=== PATIENT | female | born 1990 | race African-American/Black ===

== ENCOUNTER 2018-04-07 15:20 | Emergency (ER) | payer SELFPAY ==
--- NOTE | 2018-04-07 15:49 | EDM.PDOC ---
ED HPI GENERAL MEDICAL PROBLEM - General Chief Complaint: Abdominal Pain Stated Complaint: RIGHT SIDE ABDOMINAL PAIN Time Seen by Provider: 04/07/18 15:33 - History of Present Illness INITIAL COMMENTS - FREE TEXT/NARRATIVE: HISTORY AND PHYSICAL: History of present illness: Patient's 28-year-old black female with history of recent home positive test who developed some vaginal bleeding in the last 24 hours she also has some vague right-sided abdominal pain there's been no urinary symptoms vaginal discharge or other complaints. Review of systems: As per history of present illness and below otherwise all systems reviewed and negative. Past medical history: As per history of present illness and as reviewed below otherwise noncontributory. Surgical history: As per history of present illness and as reviewed below otherwise noncontributory. Social history: No reported history of drug or alcohol abuse. Family history: As per history of present illness and as reviewed below otherwise noncontributory. Physical exam: HEENT: Atraumatic, normocephalic, pupils reactive, negative for conjunctival pallor or scleral icterus, mucous membranes moist, throat clear, neck supple, nontender, trachea midline. Lungs: Clear to auscultation, breath sounds equal bilaterally, chest nontender. Heart: S1S2, regular, negative for clicks, rubs, or JVD. Abdomen: Soft, nondistended, nontender. Negative for masses or hepatosplenomegaly. Negative for costovertebral tenderness. Pelvis: Stable nontender. Genitourinary: Deferred. Rectal: Deferred. Extremities: Atraumatic, negative for cords or calf pain. Neurovascular unremarkable. Neuro: Awake, alert, oriented. Cranial nerves II through XII unremarkable. Cerebellum unremarkable. Motor and sensory unremarkable throughout. Exam nonfocal. Diagnostics: CBC CMP quantitative beta UA ABO Rh pelvic ultrasound Therapeutics: None Impression: #1 first trimester bleeding Definitive disposition and diagnosis as appropriate pending reevaluation and review of above. Abdominal Pain Score (Numeric/FACES): 2 - Related Data Allergies Allergy/AdvReac Type Severity Reaction Status Date / Time No Known Allergies Allergy Verified 04/07/18 15:33 Home Meds: Home Meds . [No Known Home Meds] 04/07/18 [History] Past Medical History - Past Health History Medical/Surgical History: Denies Medical/Surgical History Social & Family History - Family History Family Medical History: Noncontributory - Tobacco Use Smoking Status *Q: Never Smoker - Caffeine Use Caffeine Use: Reports: Coffee - Recreational Drug Use Recreational Drug Use: No ED ROS GENERAL - Review of Systems Review Of Systems: ROS reveals no pertinent complaints other than HPI. ED EXAM, GENERAL - Physical Exam Exam: See Below (See dictation) Course - Vital Signs Last Recorded V/S: Last Vital Signs Temp 36.7 C 04/07/18 18:10 Pulse 64 04/07/18 18:10 Resp 16 04/07/18 18:10 BP 99/57 L 04/07/18 18:10 Pulse Ox 98 04/07/18 18:10 - Orders/Labs/Meds Orders: Active Orders 24 hr Category Date Time Status OB 1st Tri Sgl 1st Gest [US] Stat Exams 04/07/18 15:47 Taken UA W/MICROSCOPIC [URIN] Stat Lab 04/07/18 16:10 Ordered Labs: Laboratory Tests 04/07/18 04/07/18 04/07/18 Range/Units 16:00 16:00 16:00 WBC 11.59 H (4.0-11.0) K/uL RBC 4.12 L (4.30-5.90) M/uL Hgb 13.3 (12.0-16.0) g/dL Hct 38.8 (36.0-46.0) % MCV 94.2 (80.0-98.0) fL MCH 32.3 H (27.0-32.0) pg MCHC 34.3 (31.0-37.0) g/dL RDW Std Deviation 40.4 (28.0-62.0) fl RDW Coeff of Ever 12 (11.0-15.0) % Plt Count 234 (150-400) K/uL MPV 9.30 (7.40-12.00) fL Neut % (Auto) 69.9 (48.0-80.0) % Lymph % (Auto) 25.0 (16.0-40.0) % [place] % (Auto) 4.7 (0.0-15.0) % Eos % (Auto) 0.3 (0.0-7.0) % Baso % (Auto) 0.1 (0.0-1.5) % Neut # (Auto) 8.1 H (1.4-5.7) K/uL Lymph # (Auto) 2.9 H (0.6-2.4) K/uL [place] # (Auto) 0.5 (0.0-0.8) K/uL Eos # (Auto) 0.0 (0.0-0.7) K/uL Baso # (Auto) 0.0 (0.0-0.1) K/uL Nucleated RBC % 0.0 /100WBC Nucleated RBCs # 0 K/uL Sodium 136 (136-145) mmol/L Potassium 3.6 (3.5-5.1) mmol/L Chloride 102 (98-107) mmol/L Carbon Dioxide 26.7 (21.0-32.0) mmol/L BUN 15 (7.0-18.0) mg/dL Creatinine 0.8 (0.6-1.0) mg/dL Est Cr Clr Drug Dosing 84.28 mL/min Estimated GFR (MDRD) > 60.0 ml/min Glucose 100 (74-106) mg/dL Calcium 8.8 (8.5-10.1) mg/dL Total Bilirubin 0.3 (0.2-1.0) mg/dL AST 15 (15-37) IU/L ALT 18 (14-63) IU/L Alkaline Phosphatase 45 L (46-116) U/L Total Protein 7.7 (6.4-8.2) g/dL Albumin 3.8 (3.4-5.0) g/dL Globulin 3.9 H (2.0-3.5) g/dL Albumin/Globulin Ratio 1.0 L (1.3-2.8) HCG, Quant 53813.0 mIU/mL Urine Color Urine Appearance Urine pH (5.0-8.0) Ur Specific [place] (1.001-1.035) Urine Protein (NEGATIVE) mg/dL Urine Glucose (UA) (NEGATIVE) mg/dL Urine Ketones (NEGATIVE) mg/dL Urine Occult Blood (NEGATIVE) Urine Nitrite (NEGATIVE) Urine Bilirubin (NEGATIVE) Urine Urobilinogen (<2.0) EU/dL Ur Leukocyte Esterase (NEGATIVE) Urine RBC (0-2/HPF) Urine WBC (0-5/HPF) Ur Epithelial Cells (NONE-FEW) Urine Bacteria (NEGATIVE) Blood Type B NEGATIVE 06/04/18 Range/Units 16:10 WBC (4.0-11.0) K/uL RBC (4.30-5.90) M/uL Hgb (12.0-16.0) g/dL Hct (36.0-46.0) % MCV (80.0-98.0) fL MCH (27.0-32.0) pg MCHC (31.0-37.0) g/dL RDW Std Deviation (28.0-62.0) fl RDW Coeff of Ever (11.0-15.0) % Plt Count (150-400) K/uL MPV (7.40-12.00) fL Neut % (Auto) (48.0-80.0) % Lymph % (Auto) (16.0-40.0) % [place] % (Auto) (0.0-15.0) % Eos % (Auto) (0.0-7.0) % Baso % (Auto) (0.0-1.5) % Neut # (Auto) (1.4-5.7) K/uL Lymph # (Auto) (0.6-2.4) K/uL [place] # (Auto) (0.0-0.8) K/uL Eos # (Auto) (0.0-0.7) K/uL Baso # (Auto) (0.0-0.1) K/uL Nucleated RBC % /100WBC Nucleated RBCs # K/uL Sodium (136-145) mmol/L Potassium (3.5-5.1) mmol/L Chloride (98-107) mmol/L Carbon Dioxide (21.0-32.0) mmol/L BUN (7.0-18.0) mg/dL Creatinine (0.6-1.0) mg/dL Est Cr Clr Drug Dosing mL/min Estimated GFR (MDRD) ml/min Glucose (74-106) mg/dL Calcium (8.5-10.1) mg/dL Total Bilirubin (0.2-1.0) mg/dL AST (15-37) IU/L ALT (14-63) IU/L Alkaline Phosphatase (46-116) U/L Total Protein (6.4-8.2) g/dL Albumin (3.4-5.0) g/dL Globulin (2.0-3.5) g/dL Albumin/Globulin Ratio (1.3-2.8) HCG, Quant mIU/mL Urine Color YELLOW Urine Appearance CLEAR Urine pH 6.0 (5.0-8.0) Ur Specific [place] 1.010 (1.001-1.035) Urine Protein NEGATIVE (NEGATIVE) mg/dL Urine Glucose (UA) NEGATIVE (NEGATIVE) mg/dL Urine Ketones NEGATIVE (NEGATIVE) mg/dL Urine Occult Blood NEGATIVE (NEGATIVE) Urine Nitrite NEGATIVE (NEGATIVE) Urine Bilirubin NEGATIVE (NEGATIVE) Urine Urobilinogen 0.2 (<2.0) EU/dL Ur Leukocyte Esterase NEGATIVE (NEGATIVE) Urine RBC 0-1 (0-2/HPF) Urine WBC 0-1 (0-5/HPF) Ur Epithelial Cells RARE (NONE-FEW) Urine Bacteria RARE (NEGATIVE) Blood Type Departure - Departure Time of Disposition: 17:38 Disposition: Home, Self-Care 01 Condition: Good Clinical Impression: Wrist fracture - Discharge Information Referrals: PCP,None [Primary Care Provider] - Forms: ED Department Discharge Additional Instructions: The following information is given to patients seen in the emergency department who are being discharged to home. This information is to outline your options for follow-up care. We provide all patients seen in our emergency department with a follow-up referral. The need for follow-up, as well as the timing and circumstances, are variable depending upon the specifics of your emergency department visit. If you don't have a primary care physician on staff, we will provide you with a referral. We always advise you to contact your personal physician following an emergency department visit to inform them of the circumstance of the visit and for follow-up with them and/or the need for any referrals to a consulting specialist. The emergency department will also refer you to a specialist when appropriate. This referral assures that you have the opportunity for followup care with a specialist. All of these measure are taken in an effort to provide you with optimal care, which includes your followup. Under all circumstances we always encourage you to contact your private physician who remains a resource for coordinating your care. When calling for followup care, please make the office aware that this follow-up is from your recent emergency room visit. If for any reason you are refused follow-up, please contact the [facility] emergency department at and asked to speak to the emergency department charge nurse. REBECA [facility] Primary Care - Women's Health [address] [place] [id number] Follow-up with women's health above or private [employer] vaginal rest as discussed and return as needed as discussed - My Orders Last 24 Hours: My Active Orders 04/07/18 15:47 OB 1st Tri Sgl 1st Gest [US] Stat 04/07/18 16:10 UA W/MICROSCOPIC [URIN] Stat - Assessment/Plan Last 24 Hours: My Active Orders 04/07/18 15:47 OB 1st Tri Sgl 1st Gest [US] Stat 04/07/18 16:10 UA W/MICROSCOPIC [URIN] Stat
[2018-04-07 17:01] LABS: CHLORIDE,CL 102 mmol/L (98-107); SODIUM,NA 136 mmol/L (136-145)
[2018-04-07] MEDS ORDERED: Rho(D) Immune Globulin 300 MCG/2 ML Syringe IM ONE (18:25)
--- NOTE | 2018-04-08 09:18 | US ---
EXAM DATE: 04/07/18 PATIENT'S AGE: 28 Patient: SEAN WEST Facility: [place], [place] Site . Site : 1990 Study: US OB Pelvis [id number]/4/2018 5:32:43 PM Ordering Physician: Carmen Josue Final Report: INDICATION: First trimester scan, establish dates. Back pain. COMPARISON: None. TECHNIQUE: 2D parker-scale imaging of the pelvis was performed. FINDINGS: Sonographic imaging demonstrates a single early living intrauterine gestation. The embryo demonstrates a cardiac rate of 137 beats per minute. The embryo`s crown-rump length measurement of 0.26 cm corresponds to a gestational age of 5 weeks 6 days. There is a normal-appearing yolk sac. There are no gross abnormalities noted within the embryo at this early state of development. The placenta has not yet developed. There is no evidence of a perigestational hemorrhage. The gestational sac has a normal appearance and the amount of fluid within the sac appears appropriate for gestational age. The cervix is closed. The myometrium appears normal. The ovaries are of normal size. The left ovary contains a corpus luteum. There are no suspicious fluid collections noted in the cul-de-sac. IMPRESSION: Normal first trimester OB ultrasound exam. Gestational age calculated at 5 weeks 6 days with a sonographic due date of 11/29/2018. Dictated by Joselo Gusman MD @ Apr 07 2018 6:17PM (Electronic Signature) Report Signed by Proxy. KARLA
== END 2018-04-07 19:44 | disposition home or self-care (01) ==
LOC: MW.ED 15:20
DX: O20.9 Hemorrhage in early pregnancy, unspecified (principal)
CPT/HCPCS: 36415; 76801; 80053; 81001; 84702; 85025; 86850; 86900; 86901; 96372; 99284; J2790; J2791; 99283

== ENCOUNTER 2018-12-08 06:49 | Inpatient (IN) | payer BC ==
[2018-12-08] MEDS ORDERED: Lidocaine 1% 50 ML MDV INJECT PRN (07:54)
[2018-12-08] MEDS ORDERED: Tranexamic Acid 1,000 MG in Sodium Chloride 0.9% 100 ML IV PRN (07:54)
[2018-12-08] MEDS ORDERED: Sodium Chloride 0.9% 2.5 ML Syringe FLUSH PRN (07:54)
[2018-12-08] MEDS ORDERED: Methylergonovine 0.2 MG/1 ML Amp IM PRN (07:54)
[2018-12-08] MEDS ORDERED: Sodium Chloride 0.9% 10 ML Syringe FLUSH PRN (07:54)
[2018-12-08] MEDS ORDERED: Misoprostol 200 MCG Tab PO PRN (07:54)
[2018-12-08] MEDS ORDERED: Ampicillin 2 GM in Sodium Chloride 0.9% 100 ML IV ONE (07:54)
[2018-12-08] MEDS ORDERED: Butorphanol 1 MG/ML SDV IVPUSH PRN (07:54)
[2018-12-08] MEDS ORDERED: Carboprost Tromethamine 250 MCG/1 ML Amp IM PRN (07:54)
[2018-12-08] MEDS ORDERED: Nalbuphine 10 MG/1 ML Vial IVPUSH PRN (07:54)
[2018-12-08] MEDS ORDERED: Water For Irrigation,Sterile 1,000 ML Container IRR PRN (07:54)
[2018-12-08] MEDS ORDERED: Oxytocin/0.9 % Sodium Chloride 30 UNIT/500 ML BAG IV SCH ×2 (08:00→11:15)
[2018-12-08] MEDS: Lactated Ringers 1,000 ML IV SCH ×3 (08:20→15:53)
[2018-12-08] MEDS ORDERED: Terbutaline 1 MG/ML SDV SUBCUT PRN (11:04)
[2018-12-08] MEDS: Ampicillin 1 GM in Sodium Chloride 0.9% 50 ML IV SCH ×3 (12:30→20:56)
[2018-12-08] MEDS ORDERED: Lidocaine HCl/EPINEPHrine 5 ML IJ ONE (15:18)
--- NOTE | 2018-12-08 16:20 | PCM.PREANE ---
Preanesthetic Assessment - Procedure Proposed Procedure: patient desires labor epdural - Anesthesia/Transfusion/Family Hx Anesthesia History: Prior Anesthesia Without Reaction (no history of GA or SAB. Patient has had a labor epidural in the past without problems.) Family History of Anesthesia Reaction: No Transfusion History: No Prior Transfusion(s) - Review of Systems General: No Symptoms ( 6cm dilated, in active labor) Pulmonary: No Symptoms Cardiovascular: No Symptoms Gastrointestinal: No Symptoms Neurological: No Symptoms Other: Reports: None (denies any medical issues. and pt's mom present in room) - Physical Assessment NPO Status Date: 12/07/18 NPO Status Time: 17:00 (ice and water today) Pulse: 83 O2 Sat by Pulse Oximetry: 100 (room air) Respiratory Rate: 22 Blood Pressure: 102/61 Height: 1.6 m Weight: 86.183 kg ASA Class: 2E Mental Status: Alert & Oriented x3 Airway Class: Mallampati = 1 Dentition: Reports: Normal Dentition Thyro-Mental Finger Breadths: 2 Mouth Opening Finger Breadths: 3 ROM/Head Extension: Full Lungs: Clear to Auscultation, Normal Respiratory Effort Cardiovascular: Regular Rate, Regular Rhythm, No Murmurs - Lab Values: Laboratory Last Values WBC 12.31 K/uL (4.0-11.0) H 12/08/18 08:10 RBC 3.74 M/uL (4.30-5.90) L 12/08/18 08:10 Hgb 11.6 g/dL (12.0-16.0) L 12/08/18 08:10 Hct 34.1 % (36.0-46.0) L 12/08/18 08:10 MCV 91.2 fL (80.0-98.0) 12/08/18 08:10 MCH 31.0 pg (27.0-32.0) 12/08/18 08:10 MCHC 34.0 g/dL (31.0-37.0) 12/08/18 08:10 RDW Std Deviation 41.4 fl (28.0-62.0) 12/08/18 08:10 RDW Coeff of Ever 13 % (11.0-15.0) 12/08/18 08:10 Plt Count 212 K/uL (150-400) 12/08/18 08:10 MPV 9.60 fL (7.40-12.00) 12/08/18 08:10 Nucleated RBC % 0.0 /100WBC 12/08/18 08:10 Nucleated RBCs # 0 K/uL 12/08/18 08:10 Membrane Rupture POSITIVE 12/08/18 07:12 Blood Type B NEGATIVE 12/08/18 08:10 Antibody Screen NEGATIVE 12/08/18 08:10 - Allergies Allergies/Adverse Reactions: Allergies Allergy/AdvReac Type Severity Reaction Status Date / Time No Known Allergies Allergy Verified 12/08/18 07:07 - Blood Blood Available: No Product(s) Available: None - Anesthesia Plan Pre-Op Medication Ordered: None - Acknowledgements Anesthesia Type Planned: Epidural (Plan: continuous labor epidural (lumbar). Consent signed. All questions answered. and pt's mom in room) Pt an Appropriate Candidate for the Planned Anesthesia: Yes Alternatives and Risks of Anesthesia Discussed w Pt/Guardian: Yes Pt/Guardian Understands and Agrees with Anesthesia Plan: Yes PreAnesthesia Questionnaire - Past Health History Medical/Surgical History: Denies Medical/Surgical History HEENT History: Reports: Impaired Vision Cardiovascular History: Reports: None Respiratory History: Reports: None Gastrointestinal History: Reports: None Genitourinary History: Reports: None [employer] History: Reports: Musculoskeletal History: Reports: None Neurological History: Reports: None Psychiatric History: Reports: None Endocrine/Metabolic History: Reports: None Hematologic History: Reports: None Oncologic (Cancer) History: Reports: None Dermatologic History: Reports: None - Infectious Disease History Infectious Disease History: Reports: Chicken Pox - Past Surgical History HEENT Surgical History: Reports: None Cardiovascular Surgical History: Reports: None Respiratory Surgical History: Reports: None Female Surgical History: Reports: None Musculoskeletal Surgical History: Reports: None - SUBSTANCE USE Smoking Status *Q: Never Smoker Second Hand Smoke Exposure: No Recreational Drug Use History: No - HOME MEDS Home Medications: Home Meds . [No Known Home Meds] 04/07/18 [History] - CURRENT (IN HOUSE) MEDS Current Meds: Current Medications Butorphanol Tartrate (Stadol) 1 mg IVPUSH Q1H PRN PRN Reason: Pain Carboprost Tromethamine (Hemabate Ds) 250 mcg IM ASDIRECTED PRN PRN Reason: Post Hemorrhage Tranexamic Acid 1,000 mg/ (Sodium Chloride) 110 mls @ 660 mls/hr IV ONETIME PRN PRN Reason: Bleeding Lactated Ringer's (Ringers, Lactated) 1,000 mls @ 150 mls/hr IV ASDIRECTED [facility] Last Admin: 12/08/18 15:53 Dose: 999 mls/hr Oxytocin/Sodium Chloride (Oxytocin 30 Unit/500 Ml-Ns) 30 unit in 500 mls @ 500 mls/hr IV TITRATE [facility] Oxytocin/Sodium Chloride (Oxytocin 30 Unit/500 Ml-Ns) 30 unit in 500 mls @ 2 mls/hr IV TITRATE [facility]; Protocol Last Titration: 12/08/18 15:51 Dose: 6 munits/min, 6 mls/hr Ampicillin Sodium 1 gm/ Sodium (Chloride) 50 mls @ 100 mls/hr IV Q4H [facility] Last Admin: 12/08/18 12:30 Dose: 100 mls/hr Lidocaine HCl (Xylocaine 1%) 50 ml INJECT ONETIME PRN PRN Reason: Laceration repair Methylergonovine Maleate (Methergine) 0.2 mg IM ASDIRECTED PRN PRN Reason: Post Hemorrhage Misoprostol (Cytotec) 200 mcg PO ONETIME PRN PRN Reason: Post Hemorrhage Nalbuphine HCl (Nubain) 10 mg IVPUSH Q1H PRN PRN Reason: Pain (severe 7-10) Sodium Chloride (Saline Flush) 10 ml FLUSH ASDIRECTED PRN PRN Reason: Keep Vein Open Sodium Chloride (Saline Flush) 2.5 ml FLUSH ASDIRECTED PRN PRN Reason: Keep Vein Open Sterile Water (Sterile Water For Irrigation) 1,000 ml IRR ASDIRECTED PRN PRN Reason: delivery Terbutaline Sulfate (Brethine) 0.25 mg SUBCUT ASDIRECTED PRN PRN Reason: Tacysystole Discontinued Medications Ampicillin Sodium 2 gm/ Sodium (Chloride) 100 mls @ 200 mls/hr IV ONETIME ONE Stop: 12/08/18 08:23 Last Admin: 12/08/18 08:20 Dose: 200 mls/hr Fentanyl/Bupivacaine HCl (Jgorfwpm-Cawfz-Wz 2 Mcg/Ml-0.125%) Confirm Administered Dose 100 mls @ as directed .ROUTE .STK-MED ONE Stop: 12/08/18 15:19 Lidocaine/Epinephrine (Lidocaine 1.5%-Epi 1:200,000) Confirm Administered Dose 5 ml IJ .[facility] ONE Stop: 12/08/18 15:19
[2018-12-08] MEDS ORDERED: Acetaminophen 500 MG Tab PO ONE (21:51)
--- NOTE | 2018-12-09 00:10 | PCM.DEL ---
L & D Note - General Info Date of Service: 12/09/18 - Delivery Note Labor: Augmented by Oxytocin Delivery Outcome: Livebirth Delivery Method: Spontaneous Vaginal Delivery-Single Delivery Mode: Spontaneous Presentation: Right Occiput Transverse (ROT) Nuchal Cord: None Prep: Other Anesthesia Type: Epidural Amniotic Fluid Description: Meconium Stained Episiotomy Type: None Laceration: None Placenta: Intact, Spontaneous Cord: 3 Vessels Estimated Blood Loss: 200 Resuscitation Needed: No Score 1 min: 9 Score 5 min: 9 Induction Criteria - Parks Score Parks Score Dilation: > 5 cm Parks Score Effacement: >80% Parks Score Infant's Station: -2 Parks Score Consistency: Medium Parks Score Cervix Position: Midposition Parks Score Total: 9 Parks Score Presenting Part: Reports: Cephalic - Augmentation Estimated Pelvis: Reports: Adequate Weight Estimated:: Reports: AGA Reassuring Monitoring Strip: Yes Absence of Tachy Systole: Yes - General Info Date of Service: 12/09/18 - Patient Data Vitals - Most Recent: Last Vital Signs Temp 100.9 C H 12/08/18 22:02 Pulse 83 12/08/18 16:20 Resp 22 H 12/08/18 16:20 BP 102/61 12/08/18 16:20 Pulse Ox 100 12/08/18 16:20 Weight - Most Recent: 190 lb Lab Results Last 24 Hours: Laboratory Results - last 24 hr 12/08/18 12/08/18 12/08/18 Range/Units 07:12 08:10 08:10 WBC 12.31 H (4.0-11.0) K/uL RBC 3.74 L (4.30-5.90) M/uL Hgb 11.6 L (12.0-16.0) g/dL Hct 34.1 L (36.0-46.0) % MCV 91.2 (80.0-98.0) fL MCH 31.0 (27.0-32.0) pg MCHC 34.0 (31.0-37.0) g/dL RDW Std Deviation 41.4 (28.0-62.0) fl RDW Coeff of Ever 13 (11.0-15.0) % Plt Count 212 (150-400) K/uL MPV 9.60 (7.40-12.00) fL Nucleated RBC % 0.0 /100WBC Nucleated RBCs # 0 K/uL Membrane Rupture POSITIVE Blood Type B NEGATIVE Antibody Screen NEGATIVE Med Orders - Current: Current Medications Butorphanol Tartrate (Stadol) 1 mg IVPUSH Q1H PRN PRN Reason: Pain Carboprost Tromethamine (Hemabate Ds) 250 mcg IM ASDIRECTED PRN PRN Reason: Post Hemorrhage Tranexamic Acid 1,000 mg/ (Sodium Chloride) 110 mls @ 660 mls/hr IV ONETIME PRN PRN Reason: Bleeding Lactated Ringer's (Ringers, Lactated) 1,000 mls @ 150 mls/hr IV ASDIRECTED [facility] Last Admin: 12/08/18 15:53 Dose: 999 mls/hr Oxytocin/Sodium Chloride (Oxytocin 30 Unit/500 Ml-Ns) 30 unit in 500 mls @ 500 mls/hr IV TITRATE [facility] Oxytocin/Sodium Chloride (Oxytocin 30 Unit/500 Ml-Ns) 30 unit in 500 mls @ 2 mls/hr IV TITRATE [facility]; Protocol Last Titration: 12/08/18 20:38 Dose: 18 munits/min, 18 mls/hr Ampicillin Sodium 1 gm/ Sodium (Chloride) 50 mls @ 100 mls/hr IV Q4H [facility] Last Admin: 12/08/18 20:56 Dose: 100 mls/hr Gentamicin Sulfate 120 mg/ (Sodium Chloride) 53 mls @ 100 mls/hr IV Q8H [facility] Last Admin: 12/08/18 22:30 Dose: 100 mls/hr Lidocaine HCl (Xylocaine 1%) 50 ml INJECT ONETIME PRN PRN Reason: Laceration repair Methylergonovine Maleate (Methergine) 0.2 mg IM ASDIRECTED PRN PRN Reason: Post Hemorrhage Misoprostol (Cytotec) 200 mcg PO ONETIME PRN PRN Reason: Post Hemorrhage Nalbuphine HCl (Nubain) 10 mg IVPUSH Q1H PRN PRN Reason: Pain (severe 7-10) Sodium Chloride (Saline Flush) 10 ml FLUSH ASDIRECTED PRN PRN Reason: Keep Vein Open Sodium Chloride (Saline Flush) 2.5 ml FLUSH ASDIRECTED PRN PRN Reason: Keep Vein Open Sterile Water (Sterile Water For Irrigation) 1,000 ml IRR ASDIRECTED PRN PRN Reason: delivery Terbutaline Sulfate (Brethine) 0.25 mg SUBCUT ASDIRECTED PRN PRN Reason: Tacysystole Discontinued Medications Acetaminophen (Tylenol Extra Strength) 1,000 mg PO ONETIME ONE Stop: 12/08/18 21:52 Last Admin: 12/08/18 22:02 Dose: 1,000 mg Ampicillin Sodium 2 gm/ Sodium (Chloride) 100 mls @ 200 mls/hr IV ONETIME ONE Stop: 12/08/18 08:23 Last Admin: 12/08/18 08:20 Dose: 200 mls/hr Fentanyl/Bupivacaine HCl (Afgjhehr-Proje-Pb 2 Mcg/Ml-0.125%) Confirm Administered Dose 100 mls @ as directed .ROUTE .STK-MED ONE Stop: 12/08/18 15:19 Fentanyl/Bupivacaine HCl (Fmqzqslw-Fmsji-Pc 2 Mcg/Ml-0.125%) Confirm Administered Dose 100 mls @ as directed .ROUTE .STK-MED ONE Stop: 12/08/18 22:06 Lidocaine/Epinephrine (Lidocaine 1.5%-Epi 1:200,000) Confirm Administered Dose 5 ml IJ .STK-MED ONE Stop: 12/08/18 15:19 - Problem List & Annotations (1) Vaginal delivery SNOMED Code(s): 918422891 Code(s): O80 - ENCOUNTER FOR FULL-TERM UNCOMPLICATED DELIVERY Status: Acute Current Visit: Yes - Problem List Review Problem List Initiated/Reviewed/Updated: Yes - My Orders Last 24 Hours: My Active Orders 12/08/18 22:00 Gentamicin 120 mg Sodium Chloride 0.9% [Normal Saline] 50 ml IV Q8H
[2018-12-09] MEDS ORDERED: Ibuprofen 800 MG Tab ONE (00:18)
[2018-12-09] MEDS ORDERED: Witch Hazel Medicated Pads 40/Jar TOP PRN (00:20)
[2018-12-09] MEDS ORDERED: Ibuprofen 400 MG Tab PO PRN (00:20)
[2018-12-09] MEDS ORDERED: oxyCODONE 5 MG Tab PO PRN (00:20)
[2018-12-09] MEDS ORDERED: Acetaminophen 500 MG Tab PO PRN ×2 (00:20)
[2018-12-09] MEDS ORDERED: Benzocaine/Menthol 20%-0.5% Spray 78 GM Cannister TOP PRN (00:20)
[2018-12-09] MEDS ORDERED: Bisacodyl 10 MG Supp RECTAL PRN (00:20)
[2018-12-09] MEDS ORDERED: Lanolin 100% Cream 7 GM Tube TOP PRN (00:20)
[2018-12-09] MEDS ORDERED: Docusate Sodium 100 MG Cap PO PRN (00:20)
[2018-12-09] MEDS ORDERED: Ampicillin/Sulbactam Na 3 GM in Sodium Chloride 0.9% 100 ML IV SCH (02:00)
[2018-12-09] MEDS: Ampicillin 1 GM in Sodium Chloride 0.9% 50 ML IV SCH (06:14)
--- NOTE | 2018-12-09 07:15 | OR ---
SURGEON: Diana Gerber MD DATE OF PROCEDURE: 12/08/2018 PREOPERATIVE DIAGNOSES: 1. Postdates at 40 weeks 2 days gestation. 2. Spontaneous labor. 3. Chorioamnionitis. POSTOPERATIVE DIAGNOSES: 1. Postdates at 40 weeks 2 days gestation. 2. Spontaneous labor. 3. Chorioamnionitis. 4. Delivered. PROCEDURE: Spontaneous vaginal delivery. ANESTHESIA: Epidural. COMPLICATIONS: None. DISPOSITION: Mother and baby bonding in Labor and Delivery room, stable. ESTIMATED BLOOD LOSS: 200 mL. FINDINGS: Female , weight 3790 g, scores 9 and 9 at 1 and 5 minutes respectively. Meconium-stained amniotic fluid. Grossly normal placenta with 3- vessel cord. Intact perineum. BRIEF HISTORY: Karlene is a 28-year-old, G3, P2-0-1-1, who was admitted at about 8:00 a.m. on the 08 of December, at 40 weeks and 2 days gestation with a history of spontaneous leakage of clear amniotic fluid at about 5:00 a.m. accompanied with contractions. Her care was uncomplicated. GBS positive. On admission, she was found to be in early labor at 5 cm dilated, 80% effaced, station -2, confirmed to be grossly ruptured. Ampicillin was started for GBS prophylaxis. After several hours with no cervical change, Pitocin augmentation was commenced, and she received epidural for pain management. During one of her checks, she was found to have a fore bag, which was ruptured with thick meconium noted. She progressed and became fully dilated, but just about an hour before she was confirmed to be fully dilated, she had a T-max of 101 and received Tylenol, and gentamicin was added to her antibiotics regimen. heart tracing was alternated between a category 1 and category 2 with variable decelerations. The patient commenced pushing and bringing the head down to a +4 station was set up for delivery in modified dorsal lithotomy position. DESCRIPTION OF PROCEDURE: She had a spontaneous vaginal delivery of a live female in right occipital transverse position with meconium-stained amniotic fluid at delivery. No nuchal cord. The anterior and the posterior shoulders were delivered without difficulty. The baby was vigorous and cried spontaneously at and was delivered onto the maternal abdomen with the nursery nurse in attendance stimulating and drying the baby. Delayed cord clamping was observed and the cord was subsequently cut by the father of the baby. With delivery of the infant, oxytocin infusion was converted to titration for active management of the third stage of labor. Cord blood and gas samples were obtained. Placenta was delivered by controlled cord traction, appeared to be complete and intact. Examination of the vagina, cervix, and perineum revealed no lacerations. Uterine massage was performed. The uterus was well contracted below the umbilicus. Repeat temperature after delivery was 100.8 Fahrenheit. I will continue antibiotics for endometritis prophylaxis for an 24 hours. The patient tolerated the procedure well. Sponge, instrument, and needle counts were correct at the end of the delivery. ADUMVIV / MODL /[id number]
[2018-12-09] MEDS: Ibuprofen 800 MG Tab PO PRN ×3 (08:11→22:24)
--- NOTE | 2018-12-09 08:12 | PCM.PNPP ---
<Lora Ward - Last Filed: 12/09/18 08:09> - General Info Date of Service: 12/09/18 Functional Status: Reports: Pain Controlled, Tolerating Diet, Ambulating, Urinating - Review of Systems General: Denies: Weakness, Fatigue Pulmonary: Denies: Shortness of Breath, Pleuritic Chest Pain, Cough Cardiovascular: Denies: Chest Pain, Palpitations, Dyspnea on Exertion Gastrointestinal: Denies: Abdominal Pain Genitourinary: Denies: Dysuria - General Info Date of Service: 12/09/18 - Patient Data Vital Signs - Most Recent: Last Vital Signs Temp 37.3 C 12/09/18 03:30 Pulse 83 12/09/18 03:30 Resp 17 12/09/18 03:30 BP 107/69 12/09/18 03:30 Pulse Ox 99 12/09/18 03:30 Weight - Most Recent: 86.183 kg I&O - Last 24 Hours: Intake & Output 12/08/18 12/09/18 12/09/18 22:59 06:59 14:59 Output Total 500 Balance -500 Lab Results - Last 24 Hours: Laboratory Results - last 24 hr 12/08/18 12/08/18 12/08/18 Range/Units 08:10 08:10 23:46 WBC 12.31 H (4.0-11.0) K/uL RBC 3.74 L (4.30-5.90) M/uL Hgb 11.6 L (12.0-16.0) g/dL Hct 34.1 L (36.0-46.0) % MCV 91.2 (80.0-98.0) fL MCH 31.0 (27.0-32.0) pg MCHC 34.0 (31.0-37.0) g/dL RDW Std Deviation 41.4 (28.0-62.0) fl RDW Coeff of Ever 13 (11.0-15.0) % Plt Count 212 (150-400) K/uL MPV 9.60 (7.40-12.00) fL Nucleated RBC % 0.0 /100WBC Nucleated RBCs # 0 K/uL Cord ABG pH 7.236 (7.18-7.38) Cord ABG Base Excess -8 (-10--2) Cord VBG pH 7.308 (7.25-7.45) Cord VBG Base Excess -7 (-10--2) Blood Type B NEGATIVE Antibody Screen NEGATIVE Screen (NEGATIVE) RhIG Candidate? Rhogam Indicated 12/09/18 Range/Units 01:18 WBC (4.0-11.0) K/uL RBC (4.30-5.90) M/uL Hgb (12.0-16.0) g/dL Hct (36.0-46.0) % MCV (80.0-98.0) fL MCH (27.0-32.0) pg MCHC (31.0-37.0) g/dL RDW Std Deviation (28.0-62.0) fl RDW Coeff of Ever (11.0-15.0) % Plt Count (150-400) K/uL MPV (7.40-12.00) fL Nucleated RBC % /100WBC Nucleated RBCs # K/uL Cord ABG pH (7.18-7.38) Cord ABG Base Excess (-10--2) Cord VBG pH (7.25-7.45) Cord VBG Base Excess (-10--2) Blood Type Antibody Screen Screen NEGATIVE (NEGATIVE) RhIG Candidate? YES Rhogam Indicated YES, BABY RH POS H Med Orders - Current: Current Medications Acetaminophen (Tylenol Extra Strength) 500 mg PO Q4H PRN PRN Reason: Pain Acetaminophen (Tylenol Extra Strength) 1,000 mg PO Q4H PRN PRN Reason: Pain Benzocaine/Menthol (Dermoplast Pain Relief 20%-0.5% [place]) 78 gm TOP ASDIRECTED PRN PRN Reason: Perineal Comfort Measure Bisacodyl (Dulcolax) 10 mg RECTAL ONETIME PRN PRN Reason: Constipation Docusate Sodium (Colace) 100 mg PO BID PRN PRN Reason: Constipation Emollient Ointment (Lansinoh Hpa) 0 gm TOP ASDIRECTED PRN PRN Reason: Sore Nipples Ampicillin Sodium/Sulbactam (Sodium 3 gm/ Sodium Chloride) 100 mls @ 200 mls/ hr IV Q6H [facility] Ibuprofen (Motrin) 400 mg PO Q4H PRN PRN Reason: Pain Ibuprofen (Motrin) 800 mg PO Q6H PRN PRN Reason: Pain Oxycodone HCl (Oxycodone) 5 mg PO Q2H PRN PRN Reason: Pain Witch Juliette (Tucks) 1 pad TOP ASDIRECTED PRN PRN Reason: comfort care Discontinued Medications Acetaminophen (Tylenol Extra Strength) 1,000 mg PO ONETIME ONE Stop: 12/08/18 21:52 Last Admin: 12/08/18 22:02 Dose: 1,000 mg Butorphanol Tartrate (Stadol) 1 mg IVPUSH Q1H PRN PRN Reason: Pain Carboprost Tromethamine (Hemabate Ds) 250 mcg IM ASDIRECTED PRN PRN Reason: Post Hemorrhage Tranexamic Acid 1,000 mg/ (Sodium Chloride) 110 mls @ 660 mls/hr IV ONETIME PRN PRN Reason: Bleeding Ampicillin Sodium 2 gm/ Sodium (Chloride) 100 mls @ 200 mls/hr IV ONETIME ONE Stop: 12/08/18 08:23 Last Admin: 12/08/18 08:20 Dose: 200 mls/hr Lactated Ringer's (Ringers, Lactated) 1,000 mls @ 150 mls/hr IV ASDIRECTED [facility] Last Admin: 12/08/18 15:53 Dose: 999 mls/hr Oxytocin/Sodium Chloride (Oxytocin 30 Unit/500 Ml-Ns) 30 unit in 500 mls @ 500 mls/hr IV TITRATE [facility] Oxytocin/Sodium Chloride (Oxytocin 30 Unit/500 Ml-Ns) 30 unit in 500 mls @ 2 mls/hr IV TITRATE [facility]; Protocol Last Titration: 12/08/18 20:38 Dose: 18 munits/min, 18 mls/hr Ampicillin Sodium 1 gm/ Sodium (Chloride) 50 mls @ 100 mls/hr IV Q4H [facility] Last Admin: 12/09/18 06:14 Dose: Not Given Fentanyl/Bupivacaine HCl (Rvuetnwd-Vyine-Pd 2 Mcg/Ml-0.125%) Confirm Administered Dose 100 mls @ as directed .ROUTE .STK-MED ONE Stop: 12/08/18 15:19 Gentamicin Sulfate 120 mg/ (Sodium Chloride) 53 mls @ 100 mls/hr IV Q8H [facility] Last Admin: 12/08/18 22:30 Dose: 100 mls/hr Fentanyl/Bupivacaine HCl (Jznwtbll-Mzltl-Hw 2 Mcg/Ml-0.125%) Confirm Administered Dose 100 mls @ as directed .ROUTE .STK-MED ONE Stop: 12/08/18 22:06 Ampicillin Sodium/Sulbactam (Sodium 3 gm/ Sodium Chloride) 100 mls @ 200 mls/ hr IV Q6H [facility] Stop: 12/09/18 20:29 Last Admin: 12/09/18 02:30 Dose: 200 mls/hr Ibuprofen (Motrin) Confirm Administered Dose 800 mg .ROUTE .STK-MED ONE Stop: 12/09/18 00:19 Last Admin: 12/09/18 00:31 Dose: 800 mg Lidocaine HCl (Xylocaine 1%) 50 ml INJECT ONETIME PRN PRN Reason: Laceration repair Lidocaine/Epinephrine (Lidocaine 1.5%-Epi 1:200,000) Confirm Administered Dose 5 ml IJ .[employer]-MED ONE Stop: 12/08/18 15:19 Methylergonovine Maleate (Methergine) 0.2 mg IM ASDIRECTED PRN PRN Reason: Post Hemorrhage Misoprostol (Cytotec) 200 mcg PO ONETIME PRN PRN Reason: Post Hemorrhage Nalbuphine HCl (Nubain) 10 mg IVPUSH Q1H PRN PRN Reason: Pain (severe 7-10) Sodium Chloride (Saline Flush) 10 ml FLUSH ASDIRECTED PRN PRN Reason: Keep Vein Open Sodium Chloride (Saline Flush) 2.5 ml FLUSH ASDIRECTED PRN PRN Reason: Keep Vein Open Sterile Water (Sterile Water For Irrigation) 1,000 ml IRR ASDIRECTED PRN PRN Reason: delivery Terbutaline Sulfate (Brethine) 0.25 mg SUBCUT ASDIRECTED PRN PRN Reason: Tacysystole - Interaction Infant Disposition, : in Room with Family Infant Interaction: Holding Infant Feeding: Breastfed ; Nursed Well Support Person: Significant Other - Recovery Exam Fundal Tone: Firm Fundal Level: 1 Fingerbreadths Below Umbilicus Fundal Placement: Midline Lochia Amount: Small Lochia Color: Rubra/Red Perineum Description: Intact, Minimal Bruising/Swelling Episiotomy/Laceration: None Bladder Status: Voiding Urinary Elimination: Voided - Exam General: Alert, Oriented Neck: Supple Lungs: Clear to Auscultation, Normal Respiratory Effort Cardiovascular: Regular Rate, Regular Rhythm GI/Abdominal Exam: Normal Bowel Sounds, Soft, Non-Tender, No Distention, No Mass Extremities: Normal Inspection, Non-Tender, Normal Capillary Refill, Pedal Edema (trace) Skin: Warm, Dry, Intact - Problem List & Annotations (1) Vaginal delivery SNOMED Code(s): 242873929 Code(s): O80 - ENCOUNTER FOR FULL-TERM UNCOMPLICATED DELIVERY Status: Acute Current Visit: Yes - Problem List Review Problem List Initiated/Reviewed/Updated: Yes - Assessment Assessment:: PPD #1 s/p . Continue Unasyn for 24 hours for chorioamnionitis. Fever has resolved. Minimal pain and lochia. - Plan Plan:: Continue routine post-op cares. Aim for discharge home tomorrow. <Autumn Marquez - Last Filed: 12/09/18 09:47> - Patient Data Vital Signs - Most Recent: Last Vital Signs Temp 36.9 C 12/09/18 07:45 Pulse 79 12/09/18 07:45 Resp 16 12/09/18 07:45 BP 104/64 12/09/18 07:45 Pulse Ox 96 12/09/18 07:45 I&O - Last 24 Hours: Intake & Output 12/08/18 12/09/18 12/09/18 22:59 06:59 14:59 Output Total 500 Balance -500 Lab Results - Last 24 Hours: Laboratory Results - last 24 hr 12/08/18 12/09/18 Range/Units 23:46 01:18 Cord ABG pH 7.236 (7.18-7.38) Cord ABG Base Excess -8 (-10--2) Cord VBG pH 7.308 (7.25-7.45) Cord VBG Base Excess -7 (-10--2) Screen NEGATIVE (NEGATIVE) RhIG Candidate? YES Rhogam Indicated YES, BABY RH POS H Med Orders - Current: Current Medications Acetaminophen (Tylenol Extra Strength) 500 mg PO Q4H PRN PRN Reason: Pain Acetaminophen (Tylenol Extra Strength) 1,000 mg PO Q4H PRN PRN Reason: Pain Benzocaine/Menthol (Dermoplast Pain Relief 20%-0.5% [place]) 78 gm TOP ASDIRECTED PRN PRN Reason: Perineal Comfort Measure Bisacodyl (Dulcolax) 10 mg RECTAL ONETIME PRN PRN Reason: Constipation Docusate Sodium (Colace) 100 mg PO BID PRN PRN Reason: Constipation Last Admin: 12/09/18 08:11 Dose: 100 mg Emollient Ointment (Lansinoh Hpa) 0 gm TOP ASDIRECTED PRN PRN Reason: Sore Nipples Ampicillin Sodium/Sulbactam (Sodium 3 gm/ Sodium Chloride) 100 mls @ 200 mls/ hr IV Q6H [facility] Last Admin: 12/09/18 08:14 Dose: 200 mls/hr Ibuprofen (Motrin) 400 mg PO Q4H PRN PRN Reason: Pain Ibuprofen (Motrin) 800 mg PO Q6H PRN PRN Reason: Pain Last Admin: 12/09/18 08:11 Dose: 800 mg Oxycodone HCl (Oxycodone) 5 mg PO Q2H PRN PRN Reason: Pain Witch Juliette (Tucks) 1 pad TOP ASDIRECTED PRN PRN Reason: comfort care Discontinued Medications Acetaminophen (Tylenol Extra Strength) 1,000 mg PO ONETIME ONE Stop: 12/08/18 21:52 Last Admin: 12/08/18 22:02 Dose: 1,000 mg Butorphanol Tartrate (Stadol) 1 mg IVPUSH Q1H PRN PRN Reason: Pain Carboprost Tromethamine (Hemabate Ds) 250 mcg IM ASDIRECTED PRN PRN Reason: Post Hemorrhage Tranexamic Acid 1,000 mg/ (Sodium Chloride) 110 mls @ 660 mls/hr IV ONETIME PRN PRN Reason: Bleeding Ampicillin Sodium 2 gm/ Sodium (Chloride) 100 mls @ 200 mls/hr IV ONETIME ONE Stop: 12/08/18 08:23 Last Admin: 12/08/18 08:20 Dose: 200 mls/hr Lactated Ringer's (Ringers, Lactated) 1,000 mls @ 150 mls/hr IV ASDIRECTED [facility] Last Admin: 12/08/18 15:53 Dose: 999 mls/hr Oxytocin/Sodium Chloride (Oxytocin 30 Unit/500 Ml-Ns) 30 unit in 500 mls @ 500 mls/hr IV TITRATE [facility] Oxytocin/Sodium Chloride (Oxytocin 30 Unit/500 Ml-Ns) 30 unit in 500 mls @ 2 mls/hr IV TITRATE [facility]; Protocol Last Titration: 12/08/18 20:38 Dose: 18 munits/min, 18 mls/hr Ampicillin Sodium 1 gm/ Sodium (Chloride) 50 mls @ 100 mls/hr IV Q4H [facility] Last Admin: 12/09/18 06:14 Dose: Not Given Fentanyl/Bupivacaine HCl (Ixliydan-Qexwq-Bu 2 Mcg/Ml-0.125%) Confirm Administered Dose 100 mls @ as directed .ROUTE .STK-MED ONE Stop: 12/08/18 15:19 Gentamicin Sulfate 120 mg/ (Sodium Chloride) 53 mls @ 100 mls/hr IV Q8H [facility] Last Admin: 12/08/18 22:30 Dose: 100 mls/hr Fentanyl/Bupivacaine HCl (Xtyruhkf-Zltmy-Bp 2 Mcg/Ml-0.125%) Confirm Administered Dose 100 mls @ as directed .ROUTE .STK-MED ONE Stop: 12/08/18 22:06 Ampicillin Sodium/Sulbactam (Sodium 3 gm/ Sodium Chloride) 100 mls @ 200 mls/ hr IV Q6H [facility] Stop: 12/09/18 20:29 Last Admin: 12/09/18 02:30 Dose: 200 mls/hr Ibuprofen (Motrin) Confirm Administered Dose 800 mg .ROUTE .STK-MED ONE Stop: 12/09/18 00:19 Last Admin: 12/09/18 00:31 Dose: 800 mg Lidocaine HCl (Xylocaine 1%) 50 ml INJECT ONETIME PRN PRN Reason: Laceration repair Lidocaine/Epinephrine (Lidocaine 1.5%-Epi 1:200,000) Confirm Administered Dose 5 ml IJ .STK-MED ONE Stop: 12/08/18 15:19 Methylergonovine Maleate (Methergine) 0.2 mg IM ASDIRECTED PRN PRN Reason: Post Hemorrhage Misoprostol (Cytotec) 200 mcg PO ONETIME PRN PRN Reason: Post Hemorrhage Nalbuphine HCl (Nubain) 10 mg IVPUSH Q1H PRN PRN Reason: Pain (severe 7-10) Sodium Chloride (Saline Flush) 10 ml FLUSH ASDIRECTED PRN PRN Reason: Keep Vein Open Sodium Chloride (Saline Flush) 2.5 ml FLUSH ASDIRECTED PRN PRN Reason: Keep Vein Open Sterile Water (Sterile Water For Irrigation) 1,000 ml IRR ASDIRECTED PRN PRN Reason: delivery Terbutaline Sulfate (Brethine) 0.25 mg SUBCUT ASDIRECTED PRN PRN Reason: Tacysystole - My Orders Last 24 Hours: My Active Orders 12/08/18 11:05 Bedrest Bathroom Privileges [RC] ASDIRECTED Communication Order [RC] ASDIRECTED Communication Order [RC] ASDIRECTED Notify Provider [RC] PRN Notify Provider [RC] STAT Vital Signs [RC] PER UNIT ROUTINE - Plan Plan:: Patient seen and examined--and agree with above
[2018-12-09] MEDS: Ampicillin/Sulbactam Na 3 GM in Sodium Chloride 0.9% 100 ML IV SCH ×3 (08:14→20:00)
--- NOTE | 2018-12-09 10:21 | PCM48HPAN ---
Post Anesthesia Note - EVALUATION WITHIN 48HRS OF ANESTHETIC Vital Signs in Normal Range: Yes Patient Participated in Evaluation: Yes Respiratory Function Stable: Yes Airway Patent: Yes Cardiovascular Function Stable: Yes Hydration Status Stable: Yes Pain Control Satisfactory: Yes Nausea and Vomiting Control Satisfactory: Yes Mental Status Recovered: Yes Pulse Rate: 83 Resp Rate: 16 Blood Pressure: 102/61
[2018-12-10] MEDS: Ampicillin/Sulbactam Na 3 GM in Sodium Chloride 0.9% 100 ML IV SCH (01:51)
--- NOTE | 2018-12-10 11:00 | PCM.PNPP ---
- General Info Date of Service: 12/10/18 Functional Status: Reports: Pain Controlled, Tolerating Diet, Ambulating, Urinating - Review of Systems General: Denies: Fever, Weakness Pulmonary: Denies: Shortness of Breath Cardiovascular: Denies: Chest Pain, Palpitations, Lightheadedness Gastrointestinal: Denies: Nausea, Vomiting Genitourinary: Denies: Flank Pain Musculoskeletal: Reports: No Symptoms Neurological: Reports: No Symptoms - General Info Date of Service: 12/10/18 - Patient Data Vital Signs - Most Recent: Last Vital Signs Temp 36.7 C 12/10/18 08:00 Pulse 61 12/10/18 08:00 Resp 16 12/10/18 08:00 BP 93/60 12/10/18 08:00 Pulse Ox 98 12/10/18 08:00 Weight - Most Recent: 86.183 kg I&O - Last 24 Hours: Intake & Output 12/09/18 12/10/18 12/10/18 22:59 06:59 14:59 Intake Total 2 Balance 2 Lab Results - Last 24 Hours: Laboratory Results - last 24 hr 12/09/18 12/10/18 Range/Units 01:18 06:20 Hgb 10.1 L (12.0-16.0) g/dL Hct 30.1 L (36.0-46.0) % Screen NEGATIVE (NEGATIVE) RhIG Candidate? YES Rhogam Indicated YES, BABY RH POS H Med Orders - Current: Current Medications Acetaminophen (Tylenol Extra Strength) 500 mg PO Q4H PRN PRN Reason: Pain Acetaminophen (Tylenol Extra Strength) 1,000 mg PO Q4H PRN PRN Reason: Pain Last Admin: 12/09/18 19:19 Dose: 1,000 mg Benzocaine/Menthol (Dermoplast Pain Relief 20%-0.5% [place]) 78 gm TOP ASDIRECTED PRN PRN Reason: Perineal Comfort Measure Bisacodyl (Dulcolax) 10 mg RECTAL ONETIME PRN PRN Reason: Constipation Docusate Sodium (Colace) 100 mg PO BID PRN PRN Reason: Constipation Last Admin: 12/09/18 08:11 Dose: 100 mg Emollient Ointment (Lansinoh Hpa) 0 gm TOP ASDIRECTED PRN PRN Reason: Sore Nipples Ampicillin Sodium/Sulbactam (Sodium 3 gm/ Sodium Chloride) 100 mls @ 200 mls/ hr IV Q6H [facility] Last Admin: 12/10/18 01:51 Dose: 200 mls/hr Ibuprofen (Motrin) 400 mg PO Q4H PRN PRN Reason: Pain Ibuprofen (Motrin) 800 mg PO Q6H PRN PRN Reason: Pain Last Admin: 12/09/18 22:24 Dose: 800 mg Oxycodone HCl (Oxycodone) 5 mg PO Q2H PRN PRN Reason: Pain Witch Juliette (Tucks) 1 pad TOP ASDIRECTED PRN PRN Reason: comfort care Discontinued Medications Acetaminophen (Tylenol Extra Strength) 1,000 mg PO ONETIME ONE Stop: 12/08/18 21:52 Last Admin: 12/08/18 22:02 Dose: 1,000 mg Butorphanol Tartrate (Stadol) 1 mg IVPUSH Q1H PRN PRN Reason: Pain Carboprost Tromethamine (Hemabate Ds) 250 mcg IM ASDIRECTED PRN PRN Reason: Post Hemorrhage Tranexamic Acid 1,000 mg/ (Sodium Chloride) 110 mls @ 660 mls/hr IV ONETIME PRN PRN Reason: Bleeding Ampicillin Sodium 2 gm/ Sodium (Chloride) 100 mls @ 200 mls/hr IV ONETIME ONE Stop: 12/08/18 08:23 Last Admin: 12/08/18 08:20 Dose: 200 mls/hr Lactated Ringer's (Ringers, Lactated) 1,000 mls @ 150 mls/hr IV ASDIRECTED [facility] Last Admin: 12/08/18 15:53 Dose: 999 mls/hr Oxytocin/Sodium Chloride (Oxytocin 30 Unit/500 Ml-Ns) 30 unit in 500 mls @ 500 mls/hr IV TITRATE [facility] Oxytocin/Sodium Chloride (Oxytocin 30 Unit/500 Ml-Ns) 30 unit in 500 mls @ 2 mls/hr IV TITRATE [facility]; Protocol Last Titration: 12/08/18 20:38 Dose: 18 munits/min, 18 mls/hr Ampicillin Sodium 1 gm/ Sodium (Chloride) 50 mls @ 100 mls/hr IV Q4H [facility] Last Admin: 12/09/18 06:14 Dose: Not Given Fentanyl/Bupivacaine HCl (Afmvjwbp-Wmmja-Fb 2 Mcg/Ml-0.125%) Confirm Administered Dose 100 mls @ as directed .ROUTE .STK-MED ONE Stop: 12/08/18 15:19 Gentamicin Sulfate 120 mg/ (Sodium Chloride) 53 mls @ 100 mls/hr IV Q8H [facility] Last Admin: 12/08/18 22:30 Dose: 100 mls/hr Fentanyl/Bupivacaine HCl (Mmkgkcxo-Rfean-Bh 2 Mcg/Ml-0.125%) Confirm Administered Dose 100 mls @ as directed .ROUTE .STK-MED ONE Stop: 12/08/18 22:06 Ampicillin Sodium/Sulbactam (Sodium 3 gm/ Sodium Chloride) 100 mls @ 200 mls/ hr IV Q6H [facility] Stop: 12/09/18 20:29 Last Admin: 12/09/18 02:30 Dose: 200 mls/hr Ibuprofen (Motrin) Confirm Administered Dose 800 mg .ROUTE .STK-MED ONE Stop: 12/09/18 00:19 Last Admin: 12/09/18 00:31 Dose: 800 mg Lidocaine HCl (Xylocaine 1%) 50 ml INJECT ONETIME PRN PRN Reason: Laceration repair Lidocaine/Epinephrine (Lidocaine 1.5%-Epi 1:200,000) Confirm Administered Dose 5 ml IJ .STK-MED ONE Stop: 12/08/18 15:19 Methylergonovine Maleate (Methergine) 0.2 mg IM ASDIRECTED PRN PRN Reason: Post Hemorrhage Misoprostol (Cytotec) 200 mcg PO ONETIME PRN PRN Reason: Post Hemorrhage Nalbuphine HCl (Nubain) 10 mg IVPUSH Q1H PRN PRN Reason: Pain (severe 7-10) Sodium Chloride (Saline Flush) 10 ml FLUSH ASDIRECTED PRN PRN Reason: Keep Vein Open Sodium Chloride (Saline Flush) 2.5 ml FLUSH ASDIRECTED PRN PRN Reason: Keep Vein Open Sterile Water (Sterile Water For Irrigation) 1,000 ml IRR ASDIRECTED PRN PRN Reason: delivery Terbutaline Sulfate (Brethine) 0.25 mg SUBCUT ASDIRECTED PRN PRN Reason: Tacysystole - Interaction Infant Disposition, : [place] in Room with Family Interaction: Holding Infant Infant Feeding: Breastfed Infant; Nursed Well Support Person: Significant Other - Recovery Exam Fundal Tone: Firm Fundal Level: At Umbilicus Fundal Placement: Midline Lochia Amount: Scant Lochia Color: Rubra/Red Perineum Description: Intact, Minimal Bruising/Swelling Episiotomy/Laceration: None Bladder Status: Voiding Urinary Elimination: Voided - Exam General: Alert, Oriented Lungs: Normal Respiratory Effort Cardiovascular: Regular Rate, Regular Rhythm GI/Abdominal Exam: Soft, Non-Tender Extremities: Pedal Edema (trace). No: Jacklyn's Sign Skin: Warm, Dry, Intact Psy/Mental Status: Alert, Normal Affect, Normal Mood - Problem List & Annotations (1) Vaginal delivery SNOMED Code(s): 376028356 Code(s): O80 - ENCOUNTER FOR FULL-TERM UNCOMPLICATED DELIVERY Status: Acute Current Visit: Yes - Problem List Review Problem List Initiated/Reviewed/Updated: Yes - My Orders Last 24 Hours: My Active Orders 12/10/18 10:58 Ready for Discharge [RC] PER UNIT ROUTINE - Assessment Assessment:: PPD #2 s/p . - Plan Plan:: Discharge to home today. Has remained afebrile. Discharge instructions reviewed. Follow up at [facility] 6 weeks. Infection and bleeding warnings reviewed.
== END 2018-12-10 11:40 | disposition home or self-care (01) | DRG 560 ==
LOC: MW.OBCHECK 06:49 → MW.OB 06:51 → MW.OBCHECK 07:54 → MW.OB 07:54 → MW.MS 11:52 → MW.OB 11:55 → OBSVTOIN 23:46 → MW.OB 12-09 03:09
PROVIDERS: ADMIT Obstetrics & Gynecology; ATTEND Obstetrics & Gynecology
PROC: 6A550ZT Pheresis of Cord Blood Stem Cells, Single (ICD-10-PCS; principal; 2018-12-08)
PROC: 10907ZC Drainage of Amniotic Fluid, Therapeutic from Products of Conception, Via Natural or Artificial Opening (ICD-10-PCS; principal; 2018-12-08)
PROC: 10H07YZ Insertion of Other Device into Products of Conception, Via Natural or Artificial Opening (ICD-10-PCS; principal; 2018-12-08)
PROC: 10E0XZZ Delivery of Products of Conception, External Approach (ICD-10-PCS; principal; 2018-12-08)
PROC: 00HU33Z Insertion of Infusion Device into Spinal Canal, Percutaneous Approach (ICD-10-PCS; 2018-12-08)
PROC: 3E0R3BZ Introduction of Anesthetic Agent into Spinal Canal, Percutaneous Approach (ICD-10-PCS; 2018-12-08)
DX: O48.0 Post-term pregnancy (principal); O75.3 Other infection during labor; O41.1230 Chorioamnionitis, third trimester, not applicable or unspecified; O99.824 Streptococcus B carrier state complicating childbirth; O77.0 Labor and delivery complicated by meconium in amniotic fluid; Z37.0 Single live birth; Z3A.40 40 weeks gestation of pregnancy
CPT/HCPCS: 36415; 36430; 51702; 59025; 59409; 82803; 84112; 85014; 85018; 85027; 85460; 86850; 86900; 86901; A9270-GY; J0290; J0295; J1580; J2590; J2792; J7030; J7050; J7120